=== PATIENT | female | born 1925 ===

== ENCOUNTER → 2016-08-15 | Outpatient (REF) | payer OTHER ==
[~2016-08-15] MED LIST: ALLO100T PO; AMLO10TA2 PO; ASPI1TAB PO; AZEL0.1S3; CALCTAB68 PO; CETI10TA PO; DIVA250T PO; FLON1SPR; HYDR-4274 PO; HYDR25TAB PO; LEVA250T PO; LEVA500T PO; METO-207 PO; OMEP20CA3 PO; SPIR25TA2 PO; VALS320T3 PO; VITA500T88 PO; VITMTA PO
== END ==
LOC: M LAB REF 14:05
PROVIDERS: ATTEND Registered Nurse
DX: L82.1 Other seborrheic keratosis (principal)